=== PATIENT | male | born 1985 | race African-American/Black ===

== ENCOUNTER 2017-10-27 04:37 | Emergency (ER) | payer OTHER ==
[2017-10-27] MEDS: IBUPROFEN 600 MG TAB PO (05:32)
== END 2017-10-27 06:35 | disposition home or self-care (01) ==
LOC: FTE 04:37
DX: S16.1XXA Strain of muscle, fascia and tendon at neck level, initial encounter (principal); S33.9XXA Sprain of unspecified parts of lumbar spine and pelvis, initial encounter; I10 Essential (primary) hypertension; V49.49XA Driver injured in collision with other motor vehicles in traffic accident, initial encounter
CPT/HCPCS: 72040; 72100; 99283-25